=== PATIENT | female | born 1975 | race American Indian/Alaskan Native ===

== ENCOUNTER 2024-07-18 18:48 | Emergency (ER) | payer BC, SELFPAY ==
[2024-07-18 19:57] VITALS: BP 167/89; PULSE 80; RESP 19; TEMP 36.7; O2SAT 100
[2024-07-18 19:58] VITALS: BMI 31.1
--- NOTE | 2024-07-18 20:09 | XR_ITS ---
Examination: Duplex scan of the lower extremity, unilateral right complete Date and time of exam: July 18, 2024 2025 hrs. Indications: Right knee and foot swelling and pain beginning one week ago Technique: Duplex scan of the extremity veins using B-mode/grayscale imaging and Doppler spectral analysis and color flow Attention is directed to internal echogenicity, compression and augmentation involving these veins, color flow assessment, spectral analysis Findings: Major deep venous structures in the extremity demonstrate normal course and caliber. There is no evidence of deep vein thrombosis. Normal color flow and spectral analysis Impression: Negative for DVT..
--- NOTE | 2024-07-18 20:09 | XR_ITS ---
Examination: Knee, right , 3 views Technique: Knee AP, lateral, oblique 3 views Date and time of exam: July 18, 20242011 hrs. Indications: Right knee swelling redness and pain beginning 2 weeks ago Findings: Mild tricompartment osteoarthritis Moderate to large knee effusion No cortical bone destruction No ossified joint bodies Impression: Moderate to large knee effusion, clinical correlation advised
--- NOTE | 2024-07-18 20:31 | PD.EDEXREM ---
ED Extremity Problem RME/HPI General Chief complaint: Extremity Injury, Lower Stated complaint: SWELLING RIGHT FOOT AND KNEE Time Seen by Provider: 07/18/24 20:09 Arrival date/time: 07/18/24 18:48 48F with no significant PMH presents to ED with several days of R knee swelling w/o fall/trauma. Patient has also had about a month of R foot swelling after she stepped on a rock, which did not penetrate the skin. Patient was here 2 weeks ago for this with normal foot XR. Patient has seen tow truck dispatcher who could not find anything wrong. Patient is pending MRI and specialist referral. Limitations: no limitations Related Data Allergies Allergy/AdvReac Type Severity Reaction Status Date / Time NKA* Allergy Uncoded 07/18/24 18:51 Review of Systems Review of Systems Systems Reviewed: All systems reviewed, normal except as documented Constitutional Constitutional: Reports system reviewed and no additional complaints, except as documented, Denies fever(s) and Denies headache(s) ENT Ears, Nose, Mouth, and Throat: Denies disequilibrium and Denies headache(s) Cardiovascular Cardiovascular: Reports system reviewed and no additional complaints, except as documented, Denies chest pain and Denies dyspnea Respiratory Respiratory: Reports system reviewed and no additional complaints, except as documented, Denies cough and Denies dyspnea Gastrointestinal Gastrointestinal: Reports system reviewed and no additional complaints, except as documented, Denies abdominal pain, Denies nausea and Denies vomiting Musculoskeletal Musculoskeletal: Reports as per HPI and Reports joint swelling Neurologic Neurologic: Reports system reviewed and no additional complaints, except as documented, Denies confusion, Denies disequilibrium and Denies headache(s) Psychiatric Psychiatric: Denies confusion Past Medical History Past Medical History CARDIAC: Negative Congestive Heart Failure RESPIRATORY: Negative Chronic Obstructive Pulmonary Disease (COPD) GENITOURINARY: Negative Renal Disease ENDOCRINE: Negative Diabetes Mellitus Type 1 or Diabetes Mellitus Type 2 Social History SMOKING STATUS: Never smoker ED Exam General Limitations: Present no limitations General appearance: Present alert and in no apparent distress Head Head exam: Present atraumatic Eye Eye exam: Present normal appearance, PERRL and EOMI ENT ENT exam: Present normal exam, normal oropharynx and mucous membranes moist Neck Neck exam: Present normal inspection, full ROM and trachea midline Chest Chest inspection: Present normal inspection and symmetric chest wall rise Respiratory Respiratory exam: Present normal lung sounds bilaterally Cardiovascular Cardiovascular exam: Present regular rate, normal rhythm and normal heart sounds Abdominal Exam Abdominal exam: Present soft and normal bowel sounds Extremities Exam Extremities exam: Present full ROM Expanded Lower Extremity Exam Knee exam: Present full ROM (R) and swelling Back Exam Back exam: Present normal inspection and full ROM Neurological Exam Neurological exam: Present alert, oriented X3 and CN II-XII intact Psychiatric Psychiatric exam: Present normal affect and normal mood Skin Skin exam: Present warm, dry, intact and normal color Course Quality Measures none Orders Category Date Time Status yoon wrap [Splint / Immobilizer] STAT Care 07/18/24 23:22 Active US venous doppler LE RT Stat Exams 07/18/24 20:09 Completed XR knee RT 3V Stat Exams 07/18/24 20:09 Completed Vital Signs Vital signs: Vital Signs Temperature 98.1 F 07/18/24 19:57 Pulse Rate 80 07/18/24 19:57 Respiratory Rate 19 07/18/24 19:57 Blood Pressure 167/89 H 07/18/24 19:57 Pulse Oximetry (%) 100 07/18/24 19:57 Oxygen Delivery Method Room Air 07/18/24 19:57 O2 at 100% on RA and WNLs Extremity Problem MDM Narrative MDM Narrative:: 48F with no significant PMH presents to ED with several days of R knee swelling w/o fall/trauma. Patient has also had about a month of R foot swelling after she stepped on a rock, which did not penetrate the skin. Patient was here 2 weeks ago for this with normal foot XR. Patient has seen tow truck dispatcher who could not find anything wrong. Patient is pending MRI and specialist referral. Physical exam reveals R knee swelling, but no redness or tenderness. ROM mostly intact. No obvious lower leg/foot swelling. Patient is afebrile, calm, and alert. XR OA with effusion. US no DVT. YOON and genetic counsellor given. Patient data External records reviewed:: [facility] previous records Clinical information provided by:: patient Social determinants that could affect healthcare access:: none Patient has the following chronic illnesses:: none How is presenting disease/condition affected by chronic disease/condition?: no chronic disease Evaluation data The following diagnostics were reviewed and interpreted by me:: radiology exam(s) Lab and/or radiology exams considered but not ordered:: ordered Interpretation Summary: abovenot orde Medications / Prescriptions Medications or Prescriptions considered but not ordered:: not ordered Medication administrations:: n/a Consultations Consultation(s) initiated? (list below): No Diagnosis Extremity Problem Differential Diagnosis: herpes zoster, gout, cellulitis, superficial thrombophlebitis, deep venous thrombosis of upper extremity, lower extremity edema, deep vein thrombosis of lower extremity and other (OA) Most likely diagnosis given after review of the tests above:: OA Admission Indicated Admission indicated?: not indicated Admission Request Was there a request for admission?: No Disposition Plan Disposition Plan: Discharge Discharge Attestation Discharge Attestation: The patient and all family members were given an opportunity to ask questions and understood the discharge instructions. Discharge instructions specifically effects, indications for sooner follow up or return to the emergency department, and the expected course of current diagnosis. Patient condition: Stable Discharge Plan Plan Patient Disposition: HOME (Self Care) Disposition Comment: Stable Prescriptions/Referrals Referrals: Mary Hopper PA-C ([facility]) [Primary Care Provider] - In 1 week Problem List Clinical Impression: Osteoarthritis Patient/Caregiver Discharge Instructions Education Materials: ED Osteoarthritis Additional Instructions: Please follow-up with PCP within 24-48 hours and return immediately if symptoms worsen. If problem persists, recommend outpatient PT and/or MRI follow-up. In the meantime, rest, use ice/heat, and/or compression. Print Language: Stateless Stand Alone Forms: Patient Portal Info Letter MARIE/RICHARD Supervising Physician KAYLEN Supervising Physician: Dr. Navarrete
== END 2024-07-18 23:38 | disposition home or self-care (01) ==
PROVIDERS: Emergency Provider Emergency Medicine; PCP Nurse Practitioner Family
DX: M17.11 Unilateral primary osteoarthritis, right knee (principal); S99.921A Unspecified injury of right foot, initial encounter; W22.09XA Striking against other stationary object, initial encounter
CPT/HCPCS: 73562; 93971; 99284